=== PATIENT | female | born 2000 | race Caucasian/White ===

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

== ENCOUNTER → 2019-08-10 | Outpatient (REF) | payer BC, OTHER | LOC: M SFHCLERA 15:40 | PROVIDERS: ATTEND Physician Assistant | DX: J02.9 Acute pharyngitis, unspecified (principal) ==

== ENCOUNTER → 2020-09-27 | Outpatient (CLI) | payer BC ==
--- NOTE | 2020-09-27 16:01 | REP ---
INDICATION: DATING AND VIABILITY. COMPARISON: None. TECHNIQUE: First trimester ultrasound of the gravid uterus. FINDINGS: There is an intrauterine gestational sac with a pole. The heart rate is 150 beats per minute. The pole crown-rump length is 1.0 cm. This corresponds to a gestational age of 7 weeks 0 days. The MALENA is 06/05/2021. There is no subchorionic hematoma. The right left ovaries are normal size. There is no dominant ovarian mass or cyst. There is no free fluid in the pelvis. IMPRESSION: Seven week 0 day viable intrauterine gestation. <Electronically signed by Balbir Diaz > 09/27/20 [id number]
== END ==
LOC: M WHC 15:11
PROVIDERS: ATTEND Physician Assistant Medical
DX: Z32.01 Encounter for pregnancy test, result positive (principal); Z3A.01 Less than 8 weeks gestation of pregnancy

== ENCOUNTER → 2024-07-29 | Outpatient (CLI) | payer MEDICAID, OTHER | LOC: M PLAIMG 12:56 | PROVIDERS: ATTEND Physician Assistant | DX: M75.91 Shoulder lesion, unspecified, right shoulder (principal); M54.50 Low back pain, unspecified ==